=== PATIENT | female | born 1950 | race Caucasian/White ===

== ENCOUNTER 2018-06-14 16:24 | Emergency (ER) | payer OTHER ==
[~2018-06-14] VITALS: Ht 160 cm; Wt 90.7 kg
[~2018-06-14 16:24] MED LIST: EVISTA60 MG; ZIAC 2.5-6.25 M1 TAB; ZIAC 5-6.25 MG1 TAB; ZOCOR20 MG
[2018-06-14] MEDS ORDERED: ZIAC 10/6.25 MG1 TAB (16:42)
[2018-06-14] MEDS ORDERED: ASPIR 8181 MG (16:42)
[2018-06-14] MEDS ORDERED: ALTACE10 MG (16:42)
== END 2018-06-14 20:34 | disposition home or self-care (01) ==
LOC: ER 16:24
DX: D69.49 Other primary thrombocytopenia (principal)

== ENCOUNTER 2018-06-17 11:41 | Inpatient (IN) | payer OTHER ==
[~2018-06-17] VITALS: Ht 160 cm; Wt 90.7 kg
[~2018-06-17 11:41] MED LIST changes: +ALTACE10 MG; +ASPIR 8181 MG; +ZIAC 10/6.25 MG1 TAB
--- NOTE | 2018-06-17 13:13 | NUR ---
PACIENTE ALERTA Y ORIENTADA X3, CON BUEN PATRON REPSIRATORIO Y PRESION YONAS TOMADA MANUAL EN 185/90 Y CON REFERIDO DE MD DE PLAQUETAS BAJAS, SE COLOCA EN RAJESH HASTA SER EVALUADA POR MD.
--- NOTE | 2018-06-17 13:57 | NUR ---
PACIENTE AL MOMENTO ESTABLE, ALERTA Y ORIENTADA X3 CONSULTADA CON HEMATOLOGO, SE CONITNUA MONITOREANDO POR CAMBIOS, PACIENT ESTABLE DENTRO RAGHAVENDRA U CONDICINO.
--- NOTE | 2018-06-17 15:30 | NUR ---
PT ALERTA Y ORIENTADA X3 ESFERAS EN COMPANIA DE FAMILIAR. EN RAJESH CON BARANDAS ELEVADAS Y FRENOS COLOCADOS. PENDIENTE VISITA DE INTERNISTA.
--- NOTE | 2018-06-17 16:00 | NUR ---
DR JULIANE CANALES ORDENA MUESTREAR AL PT CON BMP, CBC Y PLAQUETAS MANUALES. SE COMIENZA IVFLUIDS ORDENADOS. SE DOCUEMTA TODO EN SISTEMA. SE OVIDIO MUESTRAS DE JAME CON TECNICAS ASEPTICAS. SE ADMINSTRAN MEDICAMENTOS E IVFLUIDS ORDENADOS. TRATAMIENTO ADMINISTRADO Y TOLERA EL MISMO.
== END 2018-06-20 19:09 | DRG 813 ==
LOC: ER 11:41 → MEDJ 17:38 → MEDI 17:38 → MEDJ 22:25
PROVIDERS: ADMIT Internal Medicine
PROC: 30233R1 Transfusion of Nonautologous Platelets into Peripheral Vein, Percutaneous Approach (ICD-10-PCS; principal; 2018-06-17)
PROC: 8E0ZXY6 Isolation (ICD-10-PCS; 2018-06-17)
PROC: BW21Y0Z Computerized Tomography (CT Scan) of Abdomen and Pelvis using Other Contrast, Unenhanced and Enhanced (ICD-10-PCS; 2018-06-18)
DX: D69.49 Other primary thrombocytopenia (principal); D72.820 Lymphocytosis (symptomatic); I10 Essential (primary) hypertension

== ENCOUNTER 2019-05-02 15:24 | Inpatient (IN) | payer OTHER ==
[~2019-05-02] VITALS: Ht 165.1 cm; Wt 83.0 kg
[2019-05-02] MEDS ORDERED: ADALAT CC30 MG (15:43)
[2019-05-02] MEDS ORDERED: COZAAR50 MG (15:43)
[2019-05-02] MEDS ORDERED: PROMACTA50 MG (15:43)
== END 2019-05-03 11:54 | disposition home or self-care (01) | DRG 842 ==
LOC: ER 15:24 → MEDJ 17:33 → SEC-K 18:59 → MEDJ 19:00
PROVIDERS: ADMIT Internal Medicine
PROC: 30233N1 Transfusion of Nonautologous Red Blood Cells into Peripheral Vein, Percutaneous Approach (ICD-10-PCS; principal; 2019-05-02)
DX: C92.90 Myeloid leukemia, unspecified, not having achieved remission (principal); D63.0 Anemia in neoplastic disease; D69.59 Other secondary thrombocytopenia; I10 Essential (primary) hypertension